=== PATIENT | female | born 1945 | race Caucasian/White ===

== ENCOUNTER 2016-08-16 09:34 | Outpatient (CLI) | payer MEDICARE | END 2016-08-16 09:35 | disposition home or self-care (01) | DX: Z12.31 Encounter for screening mammogram for malignant neoplasm of breast (principal) ==

== ENCOUNTER 2017-02-12 14:22 | Emergency (ER) | payer MEDICARE, OTHER ==
[2017-02-12 14:36] VITALS: BP 144/82
--- NOTE | 2017-02-12 15:13 | XRAY Preliminary Report ---
Exam: XR Shoulder 3 View RT IMPRESSION: Fracture humeral head and neck, with partial inferior subluxation out of the glenoid ty a due to presumed large hemarthrosis. [facility] SITE ID: [id number]
--- NOTE | 2017-02-12 15:34 | XRAY Report ---
EXAM: RIGHT SHOULDER RADIOGRAPHY EXAM DATE: 02/12/2017 02:55 PM. CLINICAL HISTORY: Pain after a fall. COMPARISON: None. TECHNIQUE: 3 views. FINDINGS: Bones: Acute comminuted displaced fracture involving the right humeral head, neck, with avulsion of t he greater trochanter. Joints: Although the epicenter of the humeral head fragment complex is in the epicenter of the glenoi d along the coronal plane, it is 2 cm inferior to the normal position. Soft tissues: Marked edema. IMPRESSION: Fracture humeral head and neck, with partial inferior subluxation out of the glenoid ty a due to presumed large hemarthrosis. [facility] Referring Provider Line: [phone] SITE ID: [id number]
--- NOTE | 2017-02-12 16:42 | ED Physician Documentation ---
PD HPI UPPER EXT INJURY - Stated complaint Stated Complaint: FALL RT SHOULDER INJ - Chief complaint Chief Complaint: Ext Problem - History obtained from History obtained from: Patient - History of Present Illness Location: Right, Shoulder Type of injury: Fall Where injury occurred: Home Timing - onset: Today Timing - details: Abrupt onset Associated symptoms: No: Weakness, Numbness, Tingling Similar symptoms before: Has not had sx before - Treatment prior to arrival Treatment prior to arrival: Trip and fall, no other inj Review of Systems Constitutional: denies: Fever, Chills Cardiac: denies: Chest pain / pressure, Palpitations Respiratory: denies: Dyspnea, Cough GI: denies: Abdominal Pain PD PAST MEDICAL HISTORY - Present Medications Home Medications: Ambulatory Orders Medication Instructions Recorded Confirmed HYDROcod/ACETAM 5/325 [[place] 5/325] 1 - 2 ea PO Q6H PRN #15 tablet 02/12/17 PD ED PE NORMAL - Vitals Vital signs reviewed: Yes - General General: Alert and oriented X 3, No acute distress - Neck Neck: Supple, no meningeal sign, No bony TTP - Extremities Extremities: Other (Very tender to the proximal humerus and cannot range it, neurovascularly intact over the deltoid and in the hand.) - Neuro Neuro: Alert and oriented X 3, Normal speech Results - Vitals Vitals: Vital Signs - 24 hr 02/12/17 14:30 Temperature 36.2 C L Heart Rate 81 Respiratory 16 Rate Blood Pressure 144/82 H O2 Saturation 98 Oxygen O2 Source Room air - Rads (name of study) R shoulder Radiology: EMP read contemporaneously (Complicated fracture of the right humeral head and neck with large hemarthrosis) Departure - Departure Disposition: 01 Home, Self Care Clinical Impression: Right humeral fracture Qualifiers: Encounter type: initial encounter Humerus Location: proximal Fracture type: closed Fracture alignment: nondisplaced Condition: Good Record reviewed to determine appropriate education?: Yes Instructions: ED Fx Upper Ext Follow-Up: [facility] [Provider Group] - Within 1 week Prescriptions: HYDROcod/ACETAM 5/325 [[place] 5/325] 1 - 2 ea PO Q6H PRN #15 tablet PRN Reason: Pain Comments: Right proximal humerus fracture Your blood pressure was elevated today on check into the emergency department. This does not mean that you have hypertension, it is a common phenomenon to come to the emergency department and have elevated blood pressure. I recommend that she see her primary care physician within the week to have it rechecked when you are feeling better. Do not drink or drive while taking narcotic pain medication. Note that many narcotic pain relievers also contain Tylenol/acetaminophen. Please ensure that your total dose of acetaminophen from all sources does not exceed 3 g (3000 mg) per day. You may get constipated while on this medication. Take a stool softener such as Colace twice a day while you are on it. Also add an pbdw-dgf-zhddjvm laxative such as senna or MiraLAX on any day that you do not have a bowel movement. If you received a narcotic pain medication or sedative while in the emergency department, do not drive for the next 24 hours.
== END 2017-02-12 16:57 | disposition home or self-care (01) ==
LOC: ED 14:22
DX: S42.201A Unspecified fracture of upper end of right humerus, initial encounter for closed fracture (principal); W01.0XXA Fall on same level from slipping, tripping and stumbling without subsequent striking against object, initial encounter; Y92.009 Unspecified place in unspecified non-institutional (private) residence as the place of occurrence of the external cause; R03.0 Elevated blood-pressure reading, without diagnosis of hypertension
CPT/HCPCS: 99283

== ENCOUNTER 2017-02-24 08:25 | Day surgery (SDC) | payer MEDICARE, OTHER ==
[2017-02-24] MEDS ORDERED: ceFAZolin 2 GM/50 ML 50 ML IV ONE (08:35)
[2017-02-24] MEDS ORDERED: LACTATED RINGERS 1,000 ML IV ONE ×2 (09:06→12:46)
[2017-02-24] MEDS ORDERED: BUPIVACAINE 0.25% PF 30 ML VIAL SUBQ ONE ×3 (10:47→12:26)
[2017-02-24] MEDS ORDERED: ROPIVACAINE 0.5% PF 20 ML AMPULE EP ONE (11:38)
[2017-02-24] MEDS ORDERED: DEXAMETHASONE 4 MG/ML VIAL IVP ONE (11:38)
[2017-02-24] MEDS ORDERED: MIDAZOLAM 2 MG/2 ML VIAL IVP ONE (11:38)
[2017-02-24] MEDS ORDERED: LIDOCAINE-MPF 2% 5 ML VIAL IM ONE (11:38)
[2017-02-24] MEDS ORDERED: fentaNYL 100 MCG/2 ML VIAL IVP ONE (11:38)
[2017-02-24] MEDS ORDERED: SUCCINYLCHOLINE 200 MG/10 ML VIAL IVP ONE (11:38)
[2017-02-24] MEDS ORDERED: ONDANSETRON 4 MG/2 ML VIAL IVP ONE (11:38)
[2017-02-24] MEDS ORDERED: EPINEPHrine 1 MG/ML AMP IVP ONE (11:38)
[2017-02-24] MEDS ORDERED: PROPOFOL 200 MG/20 ML VIAL IVP ONE (11:38)
[2017-02-24] MEDS ORDERED: ROCURONIUM 50 MG/5 ML VIAL IVP ONE (11:38)
--- NOTE | 2017-02-24 14:40 | XRAY Report ---
TWO-VIEW INTRAOPERATIVE RIGHT SHOULDER: 02/24/2017 CLINICAL INDICATION: Fracture fixation. FINDINGS: Two intraoperative images of the right shoulder demonstrate sideplate and screw fixation o f the proximal humeral fracture. Alignment is improved from films of 02/12/2017. Six seconds of fluoroscopy time was provided to Dr. Ortiz. Two intraoperative matrix images viki brewster IMPRESSION: INTRAOPERATIVE IMAGING OF RIGHT SHOULDER FRACTURE FIXATION. JOB #: [id number] EXT JOB #:[id number]
[2017-02-24 16:24] VITALS: BP 106/66
--- NOTE | 2017-03-05 03:59 | OPERATIVE REPORT ---
DATE OF SURGERY: 02/24/2017 00:00:00 PREOPERATIVE DIAGNOSIS: Four part right humerus surgical neck fracture. POSTOPERATIVE DIAGNOSIS: Four part right humerus surgical neck fracture. OPERATIVE PROCEDURE: Open reduction internal fixation of a right humerus fracture. SURGEON: Raymon Ortiz MD. ASSISTANTS: None. ANESTHESIA: General endotracheal with regional and local block. FINDINGS: Four part right humerus surgical neck fracture. COMPLICATIONS: None. SPONGE AND NEEDLE COUNT: Correct. MATERIAL TO LAB: None. ESTIMATED BLOOD LOSS: 300 mL. FLUIDS: 1500 mL of Lactated Ringer's. DISPOSITION: PACU, then home. CONDITION AT END OF PROCEDURE: Stable. INDICATIONS: This is a 71-year-old female who had sustained a significantly displaced four part commi nuted fracture of the right surgical neck of her humerus in a ground level fall, landing on her elbow . She had significant ecchymosis. Radiographs revealed an impacted and displaced humeral head, impact ed on the shaft of the humerus with displaced greater and lesser tuberosity fragments. We discussed o ptions with the patient and felt that because of the significant displacement of the fragments, we ne eded to perform an open reduction internal fixation. The risks and complications were detailed, questions were answered, and no guarantees were made. PROCEDURE IN DETAIL: After consent and identification, the patient was brought to the operating room and placed in the supine position on the operating table. After induction of a general endotracheal a nesthesia and appropriate monitoring, the right upper extremity was prepped and draped free in the [facility] sterile four quarter fashion for shoulder surgery. we elected to keep the patient in a supine pos ition with an arm board on the right hand side to allow positioning of the right upper extremity. After an appropriate timeout was conducted, we began by sterile prepping and draping of the right upp er extremity. We then injected the standard interval for a deltopectoral approach to the right should er. We infiltrated the subcutaneous tissue with a total of 30 mL of 0.5% Marcaine with epinephrine. We then mapped out our incision from the tip of the coracoid down to the insertion of the deltoid on the anterolateral portion of the humerus. The skin and subcutaneous tissue were divided with a 10 mel de scalpel down through the skin and subcutaneous fat. We identified the anterior border of the delto id muscle and located the fat strike with the cephalic vein in the margin. The vein seemed to want to be retracted laterally, so we protected it with [employer] retractors. We placed Sascha retractors over the humeral head and did a digital exploration down to the shaft of the humerus and a subperiost eal reflection of the deltoid in the musculature away from the anterior and lateral aspects of the hu merus, elevating the anterior portion of the deltoid insertion. This allowed identification of the hu meral head. We found a severely impacted, but relatively intact humeral head with the greater and les ser tuberosities displaced posterior and anterior to the head respectively. These were held out of th e way while we disimpacted the humeral head with significant difficulty using a combination of stacke d osteotomes to disimpact the humeral head and build it back to its more vertical position at the anita car. This allowed us to pull the greater and lesser tuberosities back around the back side of the hum eral head to hold it in an upright position. We used a #2 FiberWire suture in a running interlocked f ashion to suture the greater and lesser tuberosities back into their normal position. We excised a po rtion of the biceps tendon and let it go free to allow for our repair of the greater and lesser tuber osities. We then used the greater tuberosity as our landmark and placed a proximal humerus locking plate just lateral to the greater tuberosity with a guidewire over the top of the humeral head. We verified our position with fluoroscopy. Standard AO technique was then used to place 5 locking screws in the proxi mal portion of the humeral locking plate. We then used a 3.5 mm cortical screw in the shaft in the mi d portion of the long slotted hole. We then checked the humeral head and noted it to be acceptable in position. We then tightened down our single cortical screw in the longitudinal slot. We then placed 2 additional distal 3.5 mm cortical screws of appropriate length in the distal portion of the plate. On completion of the open reduction internal fixation of the humeral head, we verified our position i n AP and lateral projections of the humeral head with fluoroscopy. These images were saved. We then i rrigated the wound thoroughly. We closed the wound with interrupted 2-0 Vicryl subcuticular sutures a nd a running 3-0 Monocryl suture to the dermis. We placed a sterile Mepilex silver dressing over the incision after first injecting the incision with an additional 20 mL of 0.5% Marcaine with epinephrin e. On completion of the procedure, the patient was extubated and transferred to the recovery room in goo d condition, having tolerated the procedure well. JOB #: [id number] EXT JOB #:[id number]
== END 2017-02-24 08:26 | disposition home or self-care (01) ==
LOC: SDS 08:25
PROVIDERS: ATTEND Orthopaedic Surgery
PROC: 0PSC04Z Reposition Right Humeral Head with Internal Fixation Device, Open Approach (ICD-10-PCS; principal; 2017-02-24 09:45)
DX: S42.241A 4-part fracture of surgical neck of right humerus, initial encounter for closed fracture (principal); W19.XXXA Unspecified fall, initial encounter; Z88.0 Allergy status to penicillin
CPT/HCPCS: 23615; 73060; J0690; J7120

== ENCOUNTER 2017-08-27 13:41 | Outpatient (CLI) | payer MEDICARE, OTHER ==
--- NOTE | 2017-08-28 15:58 | Mammography Report ---
DATE OF SERVICE: 08/27/2017 DIGITAL SCREENING MAMMOGRAM: 08/27/2017 CLINICAL INDICATION: A 72-year-old for screening. COMPARISON: 07/2016 TECHNIQUE: Routine CC and MLO projections were obtained of the breasts. FINDINGS: Scattered fibroglandular tissue is present within the breasts. There are no dominant masses, suspicious microcalcifications, or secondary signs of malignancy. In comparison to the previous studies, there are no significant changes. ASSESSMENT: NO MAMMOGRAPHIC EVIDENCE OF MALIGNANCY. NO SIGNIFICANT INTERVAL CHANGES. RECOMMENDATION: Screening mammography is recommended annually. BIRADS category 1 - negative. STANDARD QUALIFYING STATEMENTS: 1. This examination was reviewed with the aid of Computed-Aided Detection (CAD). 2. A negative or benign imaging report should not delay biopsy if clinically suspicious findings are present. Consider surgical consultation if warranted. More than 5% of cancers are not identified by imaging. 3. Dense breasts may obscure an underlying neoplasm. TD: 08/28/2017 15:57
== END 2017-08-27 13:42 | disposition home or self-care (01) ==
LOC: DI 13:41
PROVIDERS: ATTEND Family Medicine
DX: Z12.31 Encounter for screening mammogram for malignant neoplasm of breast (principal)
CPT/HCPCS: 77067

== ENCOUNTER 2019-04-27 08:29 | Outpatient (CLI) | payer MEDICARE, OTHER ==
--- NOTE | 2019-04-28 10:33 | Mammography Report ---
Reason: ROUTINE MAMMO Procedure Date: 04/27/2019 Accession Number: [id number] / [id number] Procedure: MGS - Screening Mammo Dig Bilat CPT Code: FULL RESULT: EXAM: Screening Mammo Dig Bilat DATE: 04/27/2019 8:49 AM CLINICAL HISTORY: Screening TECHNIQUE: (B) - Bilateral CC and MLO views were obtained. COMPARISON: 08/27/2017, 08/16/2016 PARENCHYMAL PATTERN: (A) - The breasts demonstrate scattered fibroglandular densities bilaterally. FINDINGS: There is a single view breast asymmetry RIGHT breast, projecting above the nipple line, middle one third, seen only on MLO view. Otherwise, there are no suspicious masses, calcifications, or areas of distortion. IMPRESSION: Incomplete examination. BI-RADS category 0. RECOMMENDATION: (ADDMU) - Additional views using both Mammography and Ultrasound recommended. RIGHT breast 3-D mammography should be considered, followed by RIGHT breast ultrasound from 9:00 to 3:00. BI-RADS CATEGORY: (0) - Incomplete Examination - need additional evaluation. STANDARD QUALIFYING STATEMENTS: 1. This examination was not reviewed with the aid of Computer-Aided Detection (CAD). 2. A negative or benign imaging report should not preclude biopsy if clinically suspicious findings are present. 3. Dense breasts may obscure an underlying neoplasm. 4. This examination was reviewed without the aid of 3D breast imaging (tomosynthesis).
== END 2019-04-27 08:30 | disposition home or self-care (01) ==
LOC: DI.S 08:29
PROVIDERS: ATTEND Family Medicine
DX: Z12.31 Encounter for screening mammogram for malignant neoplasm of breast (principal)
CPT/HCPCS: 77067

== ENCOUNTER 2019-05-04 14:28 | Outpatient (CLI) | payer MEDICARE, OTHER ==
--- NOTE | 2019-05-04 15:44 | Mammography Report ---
Reason: ABNORMAL MAMMOGRAM Procedure Date: 05/04/2019 Accession Number: [id number] / [id number] Procedure: DOTTIE - Diag Special Views Dig RT CPT Code: FULL RESULT: EXAM: Diag Special Views Dig RT DATE: 05/04/2019 3:37 PM CLINICAL HISTORY: Recall from screening right breast for one view asymmetry. No reported personal or family history of breast cancer. TECHNIQUE: (R) - Right ML and MLO views were obtained. COMPARISON: 04/27/2019 through 08/16/2016 PARENCHYMAL PATTERN: (A) - The breasts demonstrate scattered fibroglandular densities bilaterally. FINDINGS: Right breast: One view finding recalled from screening on the right MLO view does not persist on additional views consistent with summation of normal tissues. There are no suspicious masses, calcifications, or areas of distortion. IMPRESSION: Negative examination. BI-RADS category 1. RECOMMENDATION: (ANNUAL) - Recommend routine annual screening mammography. BI-RADS CATEGORY: (1) - Negative. STANDARD QUALIFYING STATEMENTS: 1. This examination was not reviewed with the aid of Computer-Aided Detection (CAD). 2. A negative or benign imaging report should not preclude biopsy if clinically suspicious findings are present. 3. Dense breasts may obscure an underlying neoplasm. 4. This examination was reviewed with the aid of 3D breast imaging (tomosynthesis).
== END 2019-05-04 14:29 | disposition home or self-care (01) ==
LOC: DI 14:28
PROVIDERS: ATTEND Family Medicine
DX: R92.8 Other abnormal and inconclusive findings on diagnostic imaging of breast (principal)

== ENCOUNTER 2020-06-13 13:59 | Outpatient (CLI) | payer MEDICARE, OTHER ==
--- NOTE | 2020-06-14 15:36 | Mammography Report ---
BILATERAL DIGITAL SCREENING MAMMOGRAM 3D/2D: 06/13/2020 CLINICAL: Routine screening. Comparison is made to exams dated: 04/27/2019 mammogram, 05/04/2019 mammogram, 08/27/2017 mammogram, an d 08/16/2016 mammogram - [facility]. There are scattered fibroglandular elements in both breasts. No significant masses, calcifications, or other findings are seen in either breast. There has been no significant interval change. IMPRESSION: NEGATIVE There is no mammographic evidence of malignancy. A 1 year screening mammogram is recommended. This exam was interpreted at Station ID: [id number]. NOTE: For mammograms, a report in lay terms will be sent to the patient. Approximately 15% of breast malignancies will not be visualized mammographically. In the management of a palpable breast mass, a negative mammogram must not discourage biopsy of a clinically suspicious lesion. Electronically Signed By: Jackeline carpio/bonilla:06/13/2020 17:24:37 ACR BI-RADS Category 1: Negative 3341F PARENCHYMAL PATTERN: (A) - The breast(s) demonstrate(s) scattered fibroglandular densities. BI-RADS CATEGORY: (1) - 1 RECOMMENDATION: (ANNUAL) - Recommend routine annual screening mammography. [id number] 1 year screening LATERALITY: (B)
== END 2020-06-13 14:00 | disposition home or self-care (01) ==
LOC: DI 13:59
DX: Z12.31 Encounter for screening mammogram for malignant neoplasm of breast (principal)
CPT/HCPCS: 77063; 77067

== ENCOUNTER 2021-09-26 07:55 | Outpatient (CLI) | payer MEDICARE, OTHER ==
--- NOTE | 2021-09-28 08:38 | Mammography Report ---
BILATERAL DIGITAL SCREENING MAMMOGRAM 3D/2D: 09/26/2021 CLINICAL: Routine screening. Comparison is made to exams dated: 06/13/2020 mammogram and 05/04/2019 mammogram - [facility]. There are scattered fibroglandular elements in both breasts. No significant masses, calcifications, or other findings are seen in either breast. There has been no significant interval change. IMPRESSION: NEGATIVE There is no mammographic evidence of malignancy. A 1 year screening mammogram is recommended. This exam was interpreted at Station ID: [id number]. NOTE: For mammograms, a report in lay terms will be sent to the patient. Approximately 15% of breast malignancies will not be visualized mammographically. In the management of a palpable breast mass, a negative mammogram must not discourage biopsy of a clinically suspicious lesion. Electronically Signed By: Anayeli ha/bonilla:09/26/2021 17:03:39 ACR BI-RADS Category 1: Negative 3341F PARENCHYMAL PATTERN: (A) - The breast(s) demonstrate(s) scattered fibroglandular densities. BI-RADS CATEGORY: (1) - 1 RECOMMENDATION: (ANNUAL) - Recommend routine annual screening mammography. [id number] 1 year screening LATERALITY: (B)
== END 2021-09-26 07:56 | disposition home or self-care (01) ==
LOC: DI.S 07:55
DX: Z12.31 Encounter for screening mammogram for malignant neoplasm of breast (principal)